=== PATIENT | male | born 1955 | race Caucasian/White ===

== ENCOUNTER 2019-09-04 00:26 | Observation (INO) ==
[2019-09-04] MEDS ORDERED: Ondansetron 4 MG/2 ML VIAL IVP PRN (04:19)
[2019-09-04] MEDS ORDERED: Naloxone 0.4 MG/ML INJ IVP PRN (04:19)
[2019-09-04] MEDS ORDERED: *HR* Heparin 5,000 UNIT/ML VIAL IVP PRN ×2 (04:55)
[2019-09-04] MEDS ORDERED: Heparin 25,000 UNIT/250 ML D5W 25,000 UNIT/250 ML IV.SOLN IVC SCH (05:00)
[2019-09-04 05:56] LABS: Prothrombin Time 11.9 Seconds (9.4-12.1)
[2019-09-04 05:58] LABS: Activated Partial Thrombo Time 50.4 Seconds (26.0-36.0)
[2019-09-04] MEDS ORDERED: *HR* LORazepam 2 MG/ML VIAL IVP PRN ×3 (06:14)
[2019-09-04 06:15] LABS: Alanine Aminotransferase 14 Units/L (7-52); Albumin 3.9 g/dL (3.5-5.7); Albumin/Globulin Ratio 1.3 (1.1-2.2); Alkaline Phosphatase 65 Units/L (34-104); Aspartate Amino Transferase 25 Units/L (13-39); BUN/Creatinine Ratio 11 (6-26); Bilirubin,Total 1.1 mg/dL (0.3-1.0); Blood Urea Nitrogen 9 mg/dL (8-23); Calcium 8.3 mg/dL (8.6-10.3); Carbon Dioxide 27 mEq/L (23-29); Chloride 103 mEq/L (98-107); Chol/HDL Ratio 2.4 (0-4.9); Cholesterol 127 mg/dL (< 200); Globulin 2.9 g/dL (2.4-3.5); Glucose 129 mg/dL (70-105); HDL Cholesterol 52 mg/dL (40-59); LDL Cholesterol,Calculated 47 mg/dL (< 100); Osmolality,Calculated 290 (280-300); Potassium 3.2 mEq/L (3.5-5.1); Sodium 140 mEq/L (136-145); Total Protein 6.8 g/dL (6.4-8.9); Triglycerides 139 mg/dL (< 150); Troponin I 0.03 ng/mL (< 0.04); eGFR For African Americans > 60 (> 60); eGFR For Non-African Americans > 60 (> 60)
[2019-09-04] MEDS ORDERED: Ipratropium/Albuterol Neb 3 ML IH SCH (06:15)
[2019-09-04] MEDS: Ipratropium/Albuterol Neb 3 ML IH PRN ×2 (06:28→15:55)
[2019-09-04 06:48] LABS: Basophils # 0.1 K/mcL (0.0-0.2); Basophils % 0.8 %; Eosinophils # 0.3 K/mcL (0.0-0.6); Eosinophils % 2.2 %; Hemoglobin 12.6 g/dL (12.9-16.9); Immature Granulocytes % 0.4 % (0-4); Lymphocytes # 2.9 K/mcL (0.6-4.6); Lymphocytes % 25.5 %; Mean Corpuscular HGB Conc 32.3 g/dL (31.6-35.5); Mean Corpuscular Hemoglobin 33.5 pg (28.0-33.3); Mean Corpuscular Volume 103.7 fL (83.0-100.0); Mean Platelet Volume 10.3 fL (9.4-12.4); Monocytes # 0.9 K/mcL (0.0-1.3); Monocytes % 8.3 %; Neutrophils # 7.1 K/mcL (1.6-8.9); Platelet Count 145 K/mcL (140-400); Red Blood Count 3.76 M/mcL (4.19-5.50); Red Cell Distribution Width 15.8 % (11.5-14.5); Segmented Neutrophils % 62.8 %; White Blood Count 11.4 K/mcL (4.3-11.1)
[2019-09-04] MEDS ORDERED: traZODone 50 MG TABLET PO PRN (07:27)
[2019-09-04] MEDS: Aspirin Enteric Coated 81 MG Tablet PO SCH (10:06)
[2019-09-04] MEDS: Potassium Chloride Elixir 20 MEQ/15 ML UDC PO SCH ×2 (10:07→12:54)
[2019-09-04] MEDS: carvediloL 6.25 MG TABLET PO SCH ×2 (10:07→17:07)
[2019-09-04] MEDS: Isosorbide MONOnitrate (24 HR) 30 MG TAB.ER.24H PO SCH (15:07)
[2019-09-05 05:01] LABS: Basophils # 0.1 K/mcL (0.0-0.2); Basophils % 0.9 %; Eosinophils # 0.3 K/mcL (0.0-0.6); Eosinophils % 2.4 %; Hematocrit 38.3 % (37.5-50.1); Hemoglobin 12.2 g/dL (12.9-16.9); Immature Granulocytes % 0.5 % (0-4); Lymphocytes # 2.4 K/mcL (0.6-4.6); Lymphocytes % 21.1 %; Mean Corpuscular HGB Conc 31.9 g/dL (31.6-35.5); Mean Corpuscular Hemoglobin 34.2 pg (28.0-33.3); Mean Corpuscular Volume 107.3 fL (83.0-100.0); Monocytes # 0.9 K/mcL (0.0-1.3); Monocytes % 8.3 %; Neutrophils # 7.6 K/mcL (1.6-8.9); Platelet Count 137 K/mcL (140-400); Red Blood Count 3.57 M/mcL (4.19-5.50); Red Cell Distribution Width 15.7 % (11.5-14.5); Segmented Neutrophils % 66.8 %; White Blood Count 11.3 K/mcL (4.3-11.1)
[2019-09-05 05:20] LABS: BUN/Creatinine Ratio 11 (6-26); Blood Urea Nitrogen 10 mg/dL (8-23); Calcium 8.9 mg/dL (8.6-10.3); Carbon Dioxide 29 mEq/L (23-29); Chloride 105 mEq/L (98-107); Glucose 115 mg/dL (70-105); Osmolality,Calculated 292 (280-300); Potassium 3.9 mEq/L (3.5-5.1); Sodium 141 mEq/L (136-145); eGFR For African Americans > 60 (> 60); eGFR For Non-African Americans > 60 (> 60)
[2019-09-05] MEDS ORDERED: *HR* Heparin 10,000 UNIT/10 ML VIAL ONE (07:26)
[2019-09-05] MEDS ORDERED: ISOVUE-370 200 ML INFUS..BTL ONE ×2 (07:26→07:27)
[2019-09-05] MEDS ORDERED: Heparin 1,000 UNITS/500 mL 500 ML ONE (07:26)
[2019-09-05] MEDS ORDERED: 0.9 % Sodium Chloride 2,000 ML ONE (07:26)
[2019-09-05] MEDS ORDERED: Nitroglycerin 1,000 MCG/10 ML VIAL IV ONE (07:27)
[2019-09-05] MEDS: carvediloL 6.25 MG TABLET PO SCH (07:39)
[2019-09-05] MEDS: Isosorbide MONOnitrate (24 HR) 30 MG TAB.ER.24H PO SCH (07:40)
[2019-09-05] MEDS: Aspirin Enteric Coated 81 MG Tablet PO SCH (07:40)
[2019-09-05] MEDS ORDERED: *HR* Midazolam HCl 2 MG/2 ML VIAL ONE (08:53)
[2019-09-05] MEDS ORDERED: *HR* FentaNYL (PF) 100 MCG/2 ML VIAL ONE (08:53)
[2019-09-05 11:23] VITALS: BP 157/80
== END 2019-09-05 14:11 | disposition home or self-care (01) ==
LOC: 2ANU → SUATTDRO 04:12
PROVIDERS: ADMIT Internal Medicine; ATTEND Internal Medicine

== ENCOUNTER 2020-06-20 20:16 | Inpatient (IN) ==
[2020-06-20] MEDS ORDERED: Acetaminophen 325 MG TABLET PO PRN (21:52)
[2020-06-20] MEDS ORDERED: Ondansetron 4 MG/2 ML VIAL IVP PRN (21:52)
[2020-06-20] MEDS ORDERED: Naloxone 0.4 MG/ML INJ IVP PRN (21:52)
[2020-06-20] MEDS ORDERED: Dextrose Gel 15 GM/37.5 ML TUBE PO PRN ×2 (23:12)
[2020-06-20] MEDS ORDERED: D5% in Water 1,000 ML IVC PRN (23:12)
[2020-06-20] MEDS ORDERED: *HR* Dextrose 50 % in Water (Vial) 50 ML VIAL IVP PRN (23:12)
[2020-06-21 05:12] LABS: Hematocrit 44.7 % (37.5-50.1); Hemoglobin 14.3 g/dL (12.9-16.9); Mean Corpuscular Hemoglobin 30.4 pg (28.0-33.3); Mean Corpuscular Volume 95.1 fL (83.0-100.0); Mean Platelet Volume 9.5 fL (9.4-12.4); Platelet Count 183 K/mcL (140-400); Red Cell Distribution Width 18.3 % (11.5-14.5); White Blood Count 9.5 K/mcL (4.3-11.1)
[2020-06-21 05:33] LABS: BUN/Creatinine Ratio 13 (6-26); Blood Urea Nitrogen 14 mg/dL (8-23); Calcium 9.6 mg/dL (8.6-10.3); Carbon Dioxide 27 mEq/L (23-29); Chloride 99 mEq/L (98-107); Glucose 98 mg/dL (70-105); Osmolality,Calculated 284 (280-300); Potassium 3.8 mEq/L (3.5-5.1); Sodium 137 mEq/L (136-145); eGFR For African Americans > 60 (> 60); eGFR For Non-African Americans > 60 (> 60)
[2020-06-21 05:34] LABS: Troponin I < 0.03 ng/mL (< 0.04)
[2020-06-21] MEDS ORDERED: 0.9 % Sodium Chloride 1,000 ML ONE (08:35)
[2020-06-21] MEDS: Furosemide 40 MG/4 ML VIAL IVP SCH (08:38)
[2020-06-21] MEDS: Insulin LISPRO 300 UNITS/3 ML VIAL SUBQ SCH ×3 (08:39→17:01)
[2020-06-21] MEDS: predniSONE 20 MG TABLET PO SCH (12:38)
[2020-06-21] MEDS ORDERED: Ipratropium/Albuterol Neb 3 ML IH PRN (14:02)
[2020-06-22 02:09] LABS: Hematocrit 44.4 % (37.5-50.1); Hemoglobin 14.2 g/dL (12.9-16.9); Mean Corpuscular Hemoglobin 30.1 pg (28.0-33.3); Mean Corpuscular Volume 94.3 fL (83.0-100.0); Mean Platelet Volume 9.6 fL (9.4-12.4); Platelet Count 175 K/mcL (140-400); Red Blood Count 4.71 M/mcL (4.19-5.50); Red Cell Distribution Width 17.4 % (11.5-14.5); White Blood Count 6.5 K/mcL (4.3-11.1)
[2020-06-22 02:25] LABS: BUN/Creatinine Ratio 18 (6-26); Blood Urea Nitrogen 16 mg/dL (8-23); Calcium 9.4 mg/dL (8.6-10.3); Carbon Dioxide 25 mEq/L (23-29); Chloride 100 mEq/L (98-107); Glucose 164 mg/dL (70-105); Osmolality,Calculated 285 (280-300); Potassium 4.3 mEq/L (3.5-5.1); Sodium 135 mEq/L (136-145); eGFR For African Americans > 60 (> 60); eGFR For Non-African Americans > 60 (> 60)
[2020-06-22 08:23] LABS: INR 1.5; Prothrombin Time 17.3 Seconds (9.4-12.1)
[2020-06-22] MEDS ORDERED: *HR* FentaNYL (PF) 100 MCG/2 ML VIAL IVP ONE (11:55)
[2020-06-22] MEDS ORDERED: *HR* Midazolam HCl 2 MG/2 ML VIAL IVP ONE (11:55)
[2020-06-22] MEDS: Loratadine 10 MG TABLET PO SCH (11:57)
[2020-06-22] MEDS: predniSONE 20 MG TABLET PO SCH (11:58)
[2020-06-22] MEDS: Cholecalciferol (D-3) 1,000 UNIT (25MCG) TABLET PO SCH (11:58)
[2020-06-22] MEDS: Insulin LISPRO 300 UNITS/3 ML VIAL SUBQ SCH ×2 (12:02→17:45)
[2020-06-22] MEDS: Furosemide 40 MG/4 ML VIAL IVP SCH (13:13)
[2020-06-22] MEDS: Azithromycin 250 MG TABLET PO SCH (17:46)
[2020-06-22] MEDS: *HR* Metoprolol 5 MG/5 ML VIAL IVP PRN (18:11)
[2020-06-22] MEDS: Apixaban 5 MG TABLET PO SCH (20:27)
[2020-06-23] MEDS: *HR* Metoprolol 5 MG/5 ML VIAL IVP PRN ×2 (01:43→14:30)
[2020-06-23] MEDS ORDERED: 0.9 % Sodium Chloride 500 ML IV ONE (03:02)
[2020-06-23] MEDS ORDERED: *HR* Metoprolol 5 MG/5 ML VIAL IVP ONE (03:03)
[2020-06-23 03:42] LABS: Hematocrit 48.3 % (37.5-50.1); Hemoglobin 15.1 g/dL (12.9-16.9); Mean Corpuscular HGB Conc 31.3 g/dL (31.6-35.5); Mean Corpuscular Volume 95.8 fL (83.0-100.0); Mean Platelet Volume 10.2 fL (9.4-12.4); Platelet Count 210 K/mcL (140-400); Red Blood Count 5.04 M/mcL (4.19-5.50); Red Cell Distribution Width 18.4 % (11.5-14.5); White Blood Count 14.8 K/mcL (4.3-11.1)
[2020-06-23 03:44] LABS: VBG HCO3 32 mEq/L (21-27); VBG PCO2 60 mmHg (41-51); VBG PH 7.33 pH Units (7.32-7.42); VBG PO2 31 mmHg (25-50)
[2020-06-23 03:54] LABS: BUN/Creatinine Ratio 19 (6-26); Blood Urea Nitrogen 23 mg/dL (8-23); Calcium 9.5 mg/dL (8.6-10.3); Carbon Dioxide 31 mEq/L (23-29); Chloride 96 mEq/L (98-107); Glucose 136 mg/dL (70-105); Osmolality,Calculated 288 (280-300); Phosphorous 2.9 mg/dL (2.7-4.5); Potassium 3.9 mEq/L (3.5-5.1); Sodium 136 mEq/L (136-145); eGFR For African Americans > 60 (> 60); eGFR For Non-African Americans > 60 (> 60)
[2020-06-23] MEDS: Insulin LISPRO 300 UNITS/3 ML VIAL SUBQ SCH ×3 (07:57→18:13)
[2020-06-23] MEDS: Aspirin Enteric Coated 81 MG Tablet PO SCH (08:01)
[2020-06-23] MEDS: Loratadine 10 MG TABLET PO SCH (08:01)
[2020-06-23] MEDS: Cholecalciferol (D-3) 1,000 UNIT (25MCG) TABLET PO SCH (08:01)
[2020-06-23] MEDS: predniSONE 20 MG TABLET PO SCH (08:02)
[2020-06-23] MEDS: Apixaban 5 MG TABLET PO SCH ×2 (08:02→19:37)
[2020-06-23] MEDS: Azithromycin 250 MG TABLET PO SCH (08:02)
[2020-06-23] MEDS: Furosemide 40 MG/4 ML VIAL IVP SCH (08:02)
[2020-06-24] MEDS: Cholecalciferol (D-3) 1,000 UNIT (25MCG) TABLET PO SCH (08:17)
[2020-06-24] MEDS: Azithromycin 250 MG TABLET PO SCH (08:17)
[2020-06-24] MEDS: Aspirin Enteric Coated 81 MG Tablet PO SCH (08:17)
[2020-06-24] MEDS: Loratadine 10 MG TABLET PO SCH (08:17)
[2020-06-24] MEDS: predniSONE 20 MG TABLET PO SCH (08:17)
[2020-06-24] MEDS: Apixaban 5 MG TABLET PO SCH ×2 (08:17→21:43)
[2020-06-24] MEDS: Insulin LISPRO 300 UNITS/3 ML VIAL SUBQ SCH ×3 (08:18→18:04)
[2020-06-24] MEDS: Furosemide 40 MG/4 ML VIAL IVP SCH (08:18)
[2020-06-25] MEDS: predniSONE 20 MG TABLET PO SCH (08:21)
[2020-06-25] MEDS: Aspirin Enteric Coated 81 MG Tablet PO SCH (08:22)
[2020-06-25] MEDS: Azithromycin 250 MG TABLET PO SCH (08:22)
[2020-06-25] MEDS: Furosemide 40 MG/4 ML VIAL IVP SCH (08:22)
[2020-06-25] MEDS: Cholecalciferol (D-3) 1,000 UNIT (25MCG) TABLET PO SCH (08:22)
[2020-06-25] MEDS: Apixaban 5 MG TABLET PO SCH ×2 (08:22→20:15)
[2020-06-25] MEDS: Loratadine 10 MG TABLET PO SCH (08:22)
[2020-06-25] MEDS: Insulin LISPRO 300 UNITS/3 ML VIAL SUBQ SCH ×3 (08:23→20:10)
[2020-06-25] MEDS: Metoprolol 100 MG TABLET PO SCH (20:15)
[2020-06-26] MEDS: Insulin LISPRO 300 UNITS/3 ML VIAL SUBQ SCH ×3 (07:14→16:56)
[2020-06-26 09:14] LABS: Basophils % 0.1 %; Eosinophils % 0.1 %; Hematocrit 45.7 % (37.5-50.1); Hemoglobin 15.2 g/dL (12.9-16.9); Immature Granulocytes % 0.5 % (0-4); Lymphocytes # 2.4 K/mcL (0.6-4.6); Lymphocytes % 14.7 %; Mean Corpuscular HGB Conc 33.3 g/dL (31.6-35.5); Mean Corpuscular Volume 93.3 fL (83.0-100.0); Mean Platelet Volume 10.6 fL (9.4-12.4); Monocytes # 1.8 K/mcL (0.0-1.3); Monocytes % 11.1 %; Neutrophils # 12.2 K/mcL (1.6-8.9); Platelet Count 171 K/mcL (140-400); Red Cell Distribution Width 18.3 % (11.5-14.5); Segmented Neutrophils % 73.5 %; White Blood Count 16.6 K/mcL (4.3-11.1)
[2020-06-26] MEDS: Loratadine 10 MG TABLET PO SCH (09:32)
[2020-06-26] MEDS: Aspirin Enteric Coated 81 MG Tablet PO SCH (09:32)
[2020-06-26] MEDS: Apixaban 5 MG TABLET PO SCH ×2 (09:32→20:05)
[2020-06-26] MEDS: Metoprolol 100 MG TABLET PO SCH ×2 (09:32→20:05)
[2020-06-26] MEDS: Cholecalciferol (D-3) 1,000 UNIT (25MCG) TABLET PO SCH (09:32)
[2020-06-26] MEDS: predniSONE 20 MG TABLET PO SCH (09:32)
[2020-06-26] MEDS: Furosemide 40 MG/4 ML VIAL IVP SCH ×2 (09:33→10:09)
[2020-06-26] MEDS: Azithromycin 250 MG TABLET PO SCH (09:33)
[2020-06-26 09:52] LABS: Calcium 9.1 mg/dL (8.6-10.3)
[2020-06-26 09:54] LABS: Thyroid Stimulating Hormone 1.387 mcIU/mL (0.340-5.600)
[2020-06-26] MEDS ORDERED: Perflutren Lipid Microsphere 1.3 ML in 0.9 % Sodium Chloride 8.7 ML IVP PRN (15:41)
[2020-06-27 05:30] LABS: Basophils % 0.3 %; Eosinophils % 0.1 %; Hemoglobin 16.6 g/dL (12.9-16.9); Immature Granulocytes % 0.6 % (0-4); Lymphocytes # 2.4 K/mcL (0.6-4.6); Lymphocytes % 17.3 %; Mean Corpuscular HGB Conc 32.5 g/dL (31.6-35.5); Mean Corpuscular Hemoglobin 31.3 pg (28.0-33.3); Mean Platelet Volume 10.8 fL (9.4-12.4); Monocytes # 1.8 K/mcL (0.0-1.3); Monocytes % 12.9 %; Neutrophils # 9.6 K/mcL (1.6-8.9); Nucleated Red Blood Cells 0.1 /100 WBC (0); Platelet Count 146 K/mcL (140-400); Red Blood Count 5.31 M/mcL (4.19-5.50); Red Cell Distribution Width 19.6 % (11.5-14.5); Segmented Neutrophils % 68.8 %; White Blood Count 13.9 K/mcL (4.3-11.1)
[2020-06-27 06:29] LABS: Albumin/Globulin Ratio 1.1 (1.1-2.2); Bilirubin,Direct 1.5 mg/dL (0.0-0.2); Bilirubin,Indirect 1.5 mg/dL (0.0-1.0); Calcium 9.6 mg/dL (8.6-10.3); Globulin 3.6 g/dL (2.4-3.5); Potassium 4.4 mEq/L (3.5-5.1); Total Protein 7.6 g/dL (6.4-8.9)
[2020-06-27] MEDS: Insulin LISPRO 300 UNITS/3 ML VIAL SUBQ SCH ×3 (07:40→17:59)
[2020-06-27] MEDS: Cholecalciferol (D-3) 1,000 UNIT (25MCG) TABLET PO SCH (09:06)
[2020-06-27] MEDS: Aspirin Enteric Coated 81 MG Tablet PO SCH (09:07)
[2020-06-27] MEDS: Cefepime HCl 2,000 MG in Water for inj. (sterile) 20 ML IVP SCH ×2 (09:07→18:00)
[2020-06-27] MEDS: Apixaban 5 MG TABLET PO SCH ×2 (09:07→20:19)
[2020-06-27] MEDS: predniSONE 20 MG TABLET PO SCH (09:07)
[2020-06-27] MEDS: Loratadine 10 MG TABLET PO SCH (09:07)
[2020-06-27 12:37] LABS: Bacteria,Urine Few per hpf (None-Few); Bilirubin,Urine Negative (Negative); Blood,Urine Negative (Negative); Clarity,Urine Clear (Clear); Color,Urine Dark-Yellow (Yellow); Glucose,Urine (UA) Normal (Normal); Hyaline Casts,Urine Many per lpf (None Seen); Ketones,Urine Negative (Negative); Leukocyte Esterase,Urine Negative (Negative); Mucus,Urine Few per lpf (None-Few); Nitrite,Urine Negative (Negative); Protein,Urine 30 mg/dL (Neg-Trace); Specific Gravity,Urine 1.023 (1.010-1.025); Squamous Epithelial Cell,Urine Few per hpf (None-Few); Transitional Epi Cells,Urine Few per hpf (None-Few); WBC,Urine 0-3 per hpf (0-3)
[2020-06-27 16:12] LABS: Alanine Aminotransferase 718 Units/L (7-52); C-Reactive Protein 44 mg/L (Less than 10)
[2020-06-28] MEDS: Cefepime HCl 2,000 MG in Water for inj. (sterile) 20 ML IVP SCH ×2 (05:01→18:32)
[2020-06-28 05:04] LABS: Basophils % 0.2 %; Eosinophils % 0.1 %; Hematocrit 46.5 % (37.5-50.1); Hemoglobin 15.8 g/dL (12.9-16.9); Immature Granulocytes % 0.5 % (0-4); Lymphocytes # 2.2 K/mcL (0.6-4.6); Lymphocytes % 15.1 %; Mean Corpuscular Hemoglobin 31.4 pg (28.0-33.3); Mean Corpuscular Volume 92.4 fL (83.0-100.0); Mean Platelet Volume 10.9 fL (9.4-12.4); Monocytes # 1.9 K/mcL (0.0-1.3); Monocytes % 12.9 %; Neutrophils # 10.3 K/mcL (1.6-8.9); Nucleated Red Blood Cells 0.3 /100 WBC (0); Platelet Count 162 K/mcL (140-400); Red Blood Count 5.03 M/mcL (4.19-5.50); Red Cell Distribution Width 18.9 % (11.5-14.5); Segmented Neutrophils % 71.2 %; White Blood Count 14.5 K/mcL (4.3-11.1)
[2020-06-28 06:19] LABS: Albumin 3.9 g/dL (3.5-5.7); Albumin/Globulin Ratio 1.1 (1.1-2.2); Alkaline Phosphatase 319 Units/L (34-104); Aspartate Amino Transferase 573 Units/L (13-39); BUN/Creatinine Ratio 41 (6-26); Bilirubin,Direct 1.9 mg/dL (0.0-0.2); Bilirubin,Indirect 1.6 mg/dL (0.0-1.0); Bilirubin,Total 3.5 mg/dL (0.3-1.0); Blood Urea Nitrogen 71 mg/dL (8-23); Calcium 9.1 mg/dL (8.6-10.3); Carbon Dioxide 17 mEq/L (23-29); Chloride 97 mEq/L (98-107); Globulin 3.7 g/dL (2.4-3.5); Glucose 121 mg/dL (70-105); Osmolality,Calculated 298 (280-300); Potassium 4.1 mEq/L (3.5-5.1); Sodium 133 mEq/L (136-145); Total Protein 7.6 g/dL (6.4-8.9); eGFR For African Americans 48 (> 60); eGFR For Non-African Americans 39 (> 60)
[2020-06-28 06:36] LABS: Alanine Aminotransferase > 5000 Units/L (7-52)
[2020-06-28] MEDS: Cholecalciferol (D-3) 1,000 UNIT (25MCG) TABLET PO SCH (07:59)
[2020-06-28] MEDS: Aspirin Enteric Coated 81 MG Tablet PO SCH (07:59)
[2020-06-28] MEDS: Apixaban 5 MG TABLET PO SCH ×2 (07:59→21:01)
[2020-06-28] MEDS: predniSONE 20 MG TABLET PO SCH (07:59)
[2020-06-28] MEDS: Loratadine 10 MG TABLET PO SCH (07:59)
[2020-06-28] MEDS: Insulin LISPRO 300 UNITS/3 ML VIAL SUBQ SCH ×3 (08:00→18:48)
[2020-06-28] MEDS ORDERED: Metoprolol XL (24 HR) Succ 50 MG TAB.ER.24H PO SCH (09:00)
[2020-06-28] MEDS: Metoprolol XL (24 HR) Succ 50 MG TAB.ER.24H PO SCH ×2 (09:50→21:01)
[2020-06-29 02:53] LABS: Basophils % 0.1 %; Hematocrit 45.2 % (37.5-50.1); Hemoglobin 15.2 g/dL (12.9-16.9); Immature Granulocytes % 0.7 % (0-4); Lymphocytes # 1.4 K/mcL (0.6-4.6); Lymphocytes % 9.4 %; Mean Corpuscular HGB Conc 33.6 g/dL (31.6-35.5); Mean Corpuscular Hemoglobin 30.2 pg (28.0-33.3); Mean Corpuscular Volume 89.9 fL (83.0-100.0); Mean Platelet Volume 10.7 fL (9.4-12.4); Monocytes # 1.7 K/mcL (0.0-1.3); Monocytes % 11.3 %; Neutrophils # 11.5 K/mcL (1.6-8.9); Nucleated Red Blood Cells 0.2 /100 WBC (0); Platelet Count 161 K/mcL (140-400); Red Blood Count 5.03 M/mcL (4.19-5.50); Red Cell Distribution Width 18.1 % (11.5-14.5); Segmented Neutrophils % 78.5 %; White Blood Count 14.7 K/mcL (4.3-11.1)
[2020-06-29] MEDS: Cefepime HCl 2,000 MG in Water for inj. (sterile) 20 ML IVP SCH ×2 (05:03→16:11)
[2020-06-29 07:04] LABS: Albumin 4.3 g/dL (3.5-5.7); Albumin/Globulin Ratio 1.3 (1.1-2.2); Bilirubin,Total 3.1 mg/dL (0.3-1.0); Calcium 9.4 mg/dL (8.6-10.3); Globulin 3.4 g/dL (2.4-3.5); Potassium 3.7 mEq/L (3.5-5.1); Total Protein 7.7 g/dL (6.4-8.9)
[2020-06-29] MEDS: Insulin LISPRO 300 UNITS/3 ML VIAL SUBQ SCH ×3 (07:21→16:14)
[2020-06-29] MEDS: predniSONE 20 MG TABLET PO SCH (07:58)
[2020-06-29] MEDS: Apixaban 5 MG TABLET PO SCH ×2 (07:58→21:40)
[2020-06-29] MEDS: Cholecalciferol (D-3) 1,000 UNIT (25MCG) TABLET PO SCH (07:58)
[2020-06-29] MEDS: Aspirin Enteric Coated 81 MG Tablet PO SCH (07:58)
[2020-06-29] MEDS: Loratadine 10 MG TABLET PO SCH (07:58)
[2020-06-29] MEDS: Metoprolol XL (24 HR) Succ 50 MG TAB.ER.24H PO SCH ×2 (07:59→21:40)
[2020-06-29 09:47] LABS: INR 4.2
[2020-06-29 09:54] LABS: Prothrombin Time 46.8 Seconds (9.4-12.1)
[2020-06-29] MEDS ORDERED: Furosemide 40 MG/4 ML VIAL IVP ONE (10:39)
[2020-06-29] MEDS ORDERED: *HR* LORazepam 2 MG/ML VIAL IVP ONE (12:07)
[2020-06-30 03:03] LABS: Basophils % 0.1 %; Eosinophils % 0.2 %; Hematocrit 45.9 % (37.5-50.1); Hemoglobin 14.9 g/dL (12.9-16.9); Immature Granulocytes % 0.5 % (0-4); Lymphocytes # 1.9 K/mcL (0.6-4.6); Lymphocytes % 11.4 %; Mean Corpuscular HGB Conc 32.5 g/dL (31.6-35.5); Mean Corpuscular Hemoglobin 30.5 pg (28.0-33.3); Mean Corpuscular Volume 93.9 fL (83.0-100.0); Mean Platelet Volume 10.5 fL (9.4-12.4); Monocytes # 1.9 K/mcL (0.0-1.3); Monocytes % 11.3 %; Neutrophils # 12.6 K/mcL (1.6-8.9); Nucleated Red Blood Cells 0.1 /100 WBC (0); Platelet Count 149 K/mcL (140-400); Red Blood Count 4.89 M/mcL (4.19-5.50); Red Cell Distribution Width 18.7 % (11.5-14.5); Segmented Neutrophils % 76.5 %; White Blood Count 16.5 K/mcL (4.3-11.1)
[2020-06-30 03:11] LABS: INR 3.9
[2020-06-30 03:15] LABS: Prothrombin Time 43.5 Seconds (9.4-12.1)
[2020-06-30 03:22] LABS: BUN/Creatinine Ratio 38 (6-26); Blood Urea Nitrogen 51 mg/dL (8-23); Calcium 8.9 mg/dL (8.6-10.3); Carbon Dioxide 28 mEq/L (23-29); Chloride 98 mEq/L (98-107); Glucose 112 mg/dL (70-105); Osmolality,Calculated 296 (280-300); Potassium 3.5 mEq/L (3.5-5.1); Sodium 136 mEq/L (136-145); eGFR For African Americans > 60 (> 60); eGFR For Non-African Americans 53 (> 60)
[2020-06-30] MEDS: Cefepime HCl 2,000 MG in Water for inj. (sterile) 20 ML IVP SCH ×2 (05:51→17:20)
[2020-06-30] MEDS: Insulin LISPRO 300 UNITS/3 ML VIAL SUBQ SCH ×3 (07:21→17:20)
[2020-06-30] MEDS: Metoprolol XL (24 HR) Succ 50 MG TAB.ER.24H PO SCH (07:40)
[2020-06-30] MEDS: Loratadine 10 MG TABLET PO SCH (07:40)
[2020-06-30] MEDS: predniSONE 20 MG TABLET PO SCH (07:41)
[2020-06-30] MEDS: Aspirin Enteric Coated 81 MG Tablet PO SCH (07:41)
[2020-06-30] MEDS: Apixaban 5 MG TABLET PO SCH (07:41)
[2020-06-30] MEDS: Cholecalciferol (D-3) 1,000 UNIT (25MCG) TABLET PO SCH (07:41)
[2020-06-30] MEDS ORDERED: Furosemide 40 MG/4 ML VIAL IVP ONE (11:03)
[2020-06-30 16:18] VITALS: BP 107/72
[2020-07-01] MEDS ORDERED: Furosemide 40 MG TABLET PO SCH (09:00)
== END 2020-06-30 19:11 | disposition short-term general hospital (02) | DRG 291 ==
LOC: CDU → SUATTDRO 21:27 → 2ANU 06-21 19:44
PROVIDERS: ADMIT Student in an Organized Health Care Education/Training Program; ATTEND Student in an Organized Health Care Education/Training Program